=== PATIENT | female | born 1995 | race Caucasian/White ===

== ENCOUNTER → 2017-12-24 | Outpatient (CLI) | payer OTHER ==
[~2017-12-24] MED LIST: ALBU90OI INH; BENZ100A PO; LEVO750 PO; MEDR150I IM; PROBIOTIC1 EACH PO
[2017-12-26 06:05] LABS: Source CERVICAL
== END ==
LOC: LAB 16:19 → LAB SHORT 16:19
PROVIDERS: Registered Nurse Community Health
DX: Z12.4 Encounter for screening for malignant neoplasm of cervix (principal)
CPT/HCPCS: G0123

== ENCOUNTER → 2020-06-25 | Outpatient (CLI) | payer OTHER | END | disposition home or self-care (01) | LOC: LAB EV 14:38 → LAB SHORT 14:38 | DX: L98.9 Disorder of the skin and subcutaneous tissue, unspecified (principal) | CPT/HCPCS: 87070; 87075; 87205 ==